=== PATIENT | female | born 1935 | race Caucasian/White ===

== ENCOUNTER 2019-01-12 10:40 | Emergency (ER) | payer MEDICARE ==
[~2019-01-12] VITALS: Ht 147.3 cm; Wt 47.6 kg
[2019-01-12] MEDS ORDERED: FAMO40 PO (11:32)
[2019-01-12 12:23] LABS: BASOPHILS ABSOLUTE AUTO 0.07 K/mm3 (0.00-0.23); BASOPHILS PERCENT AUTO 1 % (0-2); EOSINOPHILS ABSOLUTE AUTO 0.34 K/mm3 (0.00-0.68); EOSINOPHILS PERCENT AUTO 4 % (0-6); Hematocrit 40.4 % (33.0-51.0); Hemoglobin 13.3 g/dL (11.5-16.0); IMMATURE GRAN ABSOLUTE AUTO 0.04 K/mm3 (0.00-0.10); IMMATURE GRAN PERCENT AUTO 1 % (0-1); LYMPHOCYTES ABSOLUTE AUTO 2.14 K/mm3 (0.84-5.20); LYMPHOCYTES PERCENT AUTO 28 % (21-46); MONOCYTES ABSOLUTE AUTO 0.78 K/mm3 (0.16-1.47); MONOCYTES PERCENT AUTO 10 % (4-13); Mean Corpuscular HGB 28.5 pg (26.0-34.0); Mean Corpuscular HGB Conc 32.9 g/dL (31.5-36.5); Mean Corpuscular Volume 87 fL (80-100); Mean Platelet Volume 10.8 fL (9.1-12.4); NEUTROPHILS PERCENT AUTO 57 % (41-73); Platelet Count 245 K/mm3 (150-400); RDW Coefficient Variation 14.1 % (11.7-14.2); Red Blood Cell Count 4.66 M/mm3 (3.80-5.20); White Blood Cell Count 7.77 K/mm3 (4.00-11.30)
[2019-01-12 12:24] LABS: Source, Urine Clean Catch
[2019-01-12 12:26] LABS: Bilirubin, Urine Neg (Neg); Blood, Urine Neg (Neg); Glucose Qualitative, Urine Neg (Neg); Ketones, Urine Neg (Neg); Leukocyte Esterase, Urine 2+ (Neg); Nitrite, Urine Neg (Neg); Protein, Urine Neg (Neg); Specific Gravity, Urine 1.015 (1.003-1.022); Urobilinogen, Urine NORM (Normal)
[2019-01-12 12:30] LABS: Alanine Aminotransfer (ALT/SGP 23 U/L (12-78); Albumin, Blood 3.5 g/dL (3.4-5.0); Alk Phos 60 U/L (50-136); Anion Gap 10 mmol/L (6-16); Aspartate Aminotrans (AST/SGOT 25 U/L (12-37); Bilirubin, Total 0.6 mg/dL (0.1-1.0); Blood Urea Nitrogen 15 mg/dL (8-24); Bun/Creatinine Ratio 18.2 (12.0-20.0); CO2, Blood 19 mmol/L (21-32); Calcium, Blood 9.9 mg/dL (8.5-10.1); Chloride, Blood 107 mmol/L (98-108); Creatinine, Blood 0.83 mg/dL (0.40-1.00); Globulin, Blood 3.5 g/dL (2.2-4.0); Glomerular Filtration Rate >60 (60-); Glucose, Blood 102 mg/dL (70-99); Potassium, Blood 3.7 mmol/L (3.5-5.5); Sodium, Blood 136 mmol/L (136-145); Troponin I <0.015 ng/mL (0.000-0.040)
[2019-01-12 12:34] LABS: Appearance, Urine Clear (Clear); Color, Urine Yellow (P-Yellow)
[2019-01-12 12:36] LABS: Red Blood Cells, Urine 0-2 /hpf (0-2); Squamous Epithelial Cells Few /hpf (Few)
[2019-01-12 12:37] LABS: Bacteria Rare /hpf; Transitional Epithelial Cells Few /hpf (0-Rare)
== END 2019-01-12 13:33 | disposition home or self-care (01) ==
LOC: ER 10:40
PROVIDERS: Emergency Medicine
DX: G45.9 Transient cerebral ischemic attack, unspecified (principal); K21.9 Gastro-esophageal reflux disease without esophagitis; Z88.0 Allergy status to penicillin; Z79.899 Other long term (current) drug therapy
CPT/HCPCS: 70450; 80053; 81001; 84484; 85025; 87086; 93005; 93010; 99285-25